=== PATIENT | female | born 1995 | race Caucasian/White ===

== ENCOUNTER 2017-01-23 08:40 | Day surgery (SDC) | payer BC ==
[2017-01-23] VITALS (15 sets, daily range): BP systolic 97–127; BP diastolic 56–86
[~2017-01-23] VITALS: Ht 160 cm; Wt 61.2 kg
[2017-01-23 09:23] LABS: MEAN CORPUSCULAR HEMOGLOBIN 32.7 PG (27.0-31.0); MEAN CORPUSCULAR HGB CONC 34.7 G/DL (32.0-36.0); MEAN CORPUSCULAR VOLUME 94 FL (80-99); MEAN PLATELET VOLUME 6.4 FL (6.5-10.1); PLATELET COUNT 413 K/UL (150-450); RED BLOOD COUNT 3.93 M/UL (4.20-5.40); RED CELL DISTRIBUTION WIDTH 10.7 % (11.6-14.8); WHITE BLOOD COUNT 15.4 K/UL (4.8-10.8)
--- NOTE | 2017-01-23 09:29 | Emergency Room Report ---
History of Present Illness General Chief Complaint: Generalized Weakness Source: Patient Present Illness HPI Patient states that she has been feeling poorly for the past 2 weeks. She states that she noted nausea, fatigue and crampy abdominal pain that started 2 weeks ago. She states that her symptoms have, and gone. She states that the abdominal cramping she thought was related to constipation she was having. She did take MiraLAX and has since had multiple bowel movements but states she continues to feel fatigued and nauseated. She states that she's also felt lightheaded especially over the past couple days. She states that this morning when she got up she got lightheaded and sweaty and had 2 episodes of syncope. She did start her period today. She has an IUD, however, she went to a clinic 4 days ago and there was concerned she could be . However, she did not take a home test. She states she took one an office that she has not received the results of the tests. She states she has some low abdominal pain. She states that the pain is usually worse towards the left side. She states it does wax and wane in severity. She also notes that she uses a water filtration cyst on that she notes had a fishy smell to the water. She states when she researched this further that there were issues with this water filtration cyst, and other people were becoming nauseated. She denies diarrhea. She denies fever or chills. She has no other complaints. Allergies: Coded Allergies: No Known Allergies (Unverified , 01/23/17) Patient History Past Medical History: see triage record, psych hx - anxiety Past Surgical History: none Social History: Denies: smoking, alcohol use, drug use Last Menstrual Period: Today Now: No - possibly Reviewed Nursing Documentation: PMH: Agreed, PSxH: Agreed Nursing Documentation-PMH Past Medical History: No History, Except For Hx Neurological Problems: Yes - anxiety Review of Systems All Other Systems: negative except mentioned in HPI Physical Exam Vital Signs Date Time Temp Pulse Resp B/P (MAP) Pulse Ox O2 Delivery O2 Flow Rate FiO2 01/23/17 08:32 97.0 69 15 125/92 98 Room Air Sp02 EP Interpretation: reviewed, normal General Appearance: no apparent distress, alert, GCS 15, non-toxic Head: normocephalic, atraumatic Eyes: bilateral eye normal inspection, bilateral eye PERRL ENT: hearing grossly normal, normal pharynx, no angioedema, normal voice Neck: full range of motion, supple/symm/no masses Respiratory: chest non-tender, lungs clear, normal breath sounds, speaking full sentences Cardiovascular #1: regular rate, rhythm, no edema Gastrointestinal: normal bowel sounds, soft, non-distended, no guarding, no rebound, tenderness - mild ttp diffusely lower abdomen Rectal: deferred Genitourinary: no CVA tenderness Musculoskeletal: back normal, gait/station normal, normal range of motion, non- tender Neurologic: alert, oriented x3, responsive, motor strength/tone normal, sensory intact, speech normal Psychiatric: judgement/insight normal, memory normal, mood/affect normal, no suicidal/homicidal ideation Skin: normal color, no rash, warm/dry, well hydrated Medical Decision Making Diagnostic Impression: Primary Impression: Ectopic ER Course This patient has an ectopic in the left adnexa. There is a live fetus with cardiac activity in the left abdomen. There is noted to be a small area of hemoperitoneum. IUD is in place. The patient is stable although she has been orthostatic with a borderline blood pressure. The patient is admitted under the care of Dr. Valles, BALL WINDER for further management. She was given IV fluids and monitor closely here in the emergency department. Laboratory Tests Test 01/23/17 09:12 White Blood Count 15.4 K/UL (4.8-10.8) H Red Blood Count 3.93 M/UL (4.20-5.40) L Hemoglobin 12.8 G/DL (12.0-16.0) Hematocrit 36.9 % (37.0-47.0) L Mean Corpuscular Volume 94 FL (80-99) Mean Corpuscular Hemoglobin 32.7 PG (27.0-31.0) H Mean Corpuscular Hemoglobin Concent 34.7 G/DL (32.0-36.0) Red Cell Distribution Width 10.7 % (11.6-14.8) L Platelet Count 413 K/UL (150-450) Mean Platelet Volume 6.4 FL (6.5-10.1) L Neutrophils (%) (Auto) % (45.0-75.0) Lymphocytes (%) (Auto) % (20.0-45.0) Monocytes (%) (Auto) % (1.0-10.0) Eosinophils (%) (Auto) % (0.0-3.0) Basophils (%) (Auto) % (0.0-2.0) Differential Total Cells Counted 100 Neutrophils % (Manual) 89 % (45-75) H Lymphocytes % (Manual) 6 % (20-45) L Monocytes % (Manual) 4 % (1-10) Eosinophils % (Manual) 0 % (0-3) Basophils % (Manual) 0 % (0-2) Band Neutrophils 1 % (0-8) Platelet Estimate Increased H Platelet Morphology Normal Red Blood Cell Morphology Normal Sodium Level 138 MMOL/L (136-145) Potassium Level 3.4 MMOL/L (3.5-5.1) L Chloride Level 103 MMOL/L (98-107) Carbon Dioxide Level 24 MMOL/L (21-32) Anion Gap 11 mmol/L (5-15) Blood Urea Nitrogen 9 mg/dL (7-18) Creatinine 0.8 MG/DL (0.55-1.30) Estimate Glomerular Filtration Rate > 60 mL/min (>60) Glucose Level 143 MG/DL (74-106) H Calcium Level 9.0 MG/DL (8.5-10.1) Total Bilirubin 0.4 MG/DL (0.2-1.0) Aspartate Amino Transferase (AST) 15 U/L (15-37) Alanine Aminotransferase (ALT) 21 U/L (12-78) Alkaline Phosphatase 47 U/L (46-116) Total Protein 7.2 G/DL (6.4-8.2) Albumin 3.8 G/DL (3.4-5.0) Globulin 3.4 g/dL Albumin/Globulin Ratio 1.1 (1.0-2.7) Human Chorionic Gonadotropin, Qual Positive Human Chorionic Gonadotropin, Quant 64012 mIU/mL (1-6) H EKG Diagnostic Results Rate: normal Rhythm: NSR ST Segments: no acute changes Rhythm Strip Diag. Results EP Interpretation: yes Rate: 70's Rhythm: NSR, no PVC's, no ectopy CT/MRI/US Diagnostic Results CT/MRI/US Diagnostic Results : Imaging Test Ordered: US pelvis Impression Impression: 8 week one day left adnexal living ectopic . Evidence of associated mild hemoperitoneum. IUD noted. Last Vital Signs Date Time Temp Pulse Resp B/P (MAP) Pulse Ox O2 Delivery O2 Flow Rate FiO2 01/23/17 09:18 77 17 97/63 100 01/23/17 08:32 97.0 Room Air Disposition: ADMITTED INPATIENT Condition: Serious Referrals: NOT CHOSEN IPA/,REFERRING (PCP) NETO MORENO D.O. Jan 23, 2017 09:29
[2017-01-23 09:37] LABS: ALANINE AMINOTRANSFERASE 21 U/L (12-78); ALBUMIN/GLOBULIN RATIO 1.1 (1.0-2.7); ANION GAP 11 mmol/L (5-15); ASPARTATE AMINO TRANSFERASE 15 U/L (15-37); CARBON DIOXIDE 24 MMOL/L (21-32); CHLORIDE 103 MMOL/L (98-107); CREATININE 0.8 MG/DL (0.55-1.30); GLOMERULAR FILTRATION RATE > 60 mL/min (>60); POTASSIUM 3.4 MMOL/L (3.5-5.1); SODIUM 138 MMOL/L (136-145); TOTAL PROTEIN 7.2 G/DL (6.4-8.2)
[2017-01-23 10:09] LABS: BAND NEUTROPHILS % (MANUAL) 1 % (0-8); BASOPHILS % (MANUAL) 0 % (0-2); EOSINOPHILS % (MANUAL) 0 % (0-3); LYMPHOCYTES % (MANUAL) 6 % (20-45); NEUTROPHILS % (MANUAL) 89 % (45-75); PLATELET ESTIMATE INCREASED; TOTAL CELLS COUNTED 100
[2017-01-23 10:10] LABS: PLATELET MORPHOLOGY NORMAL
--- NOTE | 2017-01-23 11:05 | Diagnostic Imaging Report ---
Indication:Pelvic pain. IUD Technique: Grayscale and duplex Doppler imaging of the pelvis performed utilizing a transabdominal scan and endovaginal scan. Comparison: None Findings: Single living extrauterine demonstrated in the left adnexa with identification of a gestational sac, yolk sac and pole with cardiac motion. [place]-rump length estimates gestational age of about 8 weeks one day. There is a small amount of free fluid within the cul-de-sac. The free fluid likely contains some echoes indicative of a small amount of hemoperitoneum. There is no intrauterine . Intrauterine device is noted well situated in the endometrial canal. The left ovary is separately identified and is unremarkable in appearance. The right ovary is unremarkable. Impression: 8 week one day left adnexal living ectopic . Evidence of associated mild hemoperitoneum. IUD noted. Critical value communication. Findings were discussed via telephone with Dr. Johnson via telephone at 10:50 AM, 01/23/17 .
[2017-01-23] MEDS ORDERED: PRISTIQ ER50 MG PO (11:23)
[2017-01-23] MEDS ORDERED: ceFAZolin sod 1 GM in D5W 55 ML IV ONE ×4 (13:45)
[2017-01-23] MEDS ORDERED: Ropivacaine 5mg/ml Vial 30ml INJ ONE (14:03)
[2017-01-23] MEDS ORDERED: Bupivacaine 0.5% Inj 30 ml vial INJ ONE (14:03)
--- NOTE | 2017-01-23 14:03 | History & Physical ---
History and Physical History & Physicial GYNECOLOGY HISTORY AND PHYSICAL CC: Called by ER due to concern for ectopic HPI: Patient is a 21yo who presented to the ED with 2w hx of malaise, nausea, fatigue, and cramping abdominal pain. She also reports some vaginal bleeding. She thought her sx were GI-related, but after self-medicating with several GI meds her symptoms persisted. She presented to the ED this AM and was found to have an ~8w fetus in her left adnexa with cardiac movement. I was called for management. PMH: Denies hx of HTN, DM, asthma, +hx of anxiety PSH: Denies OB: G1 - current [employer]: No hx of STI, IUD in place Meds: None Allergies: NKDA SocHx: Denies T/E/D, partner at bedside for support Vital Signs Date Time Temp Pulse Resp B/P (MAP) Pulse Ox O2 Delivery O2 Flow Rate FiO2 01/23/17 08:32 97.0 69 15 125/92 98 Room Air PHYSICAL EXAM: General Appearance: NAD, but appers uncomfortable with mild pallor Head: normocephalic, atraumatic Eyes: bilateral eye normal inspection, bilateral eye PERRL ENT: MMM, OP clear Neck: full range of motion, supple/symm/no masses Respiratory: normal breath sounds, speaking full sentences, no increased work of breathing or pain on inspiration Cardiovascular: regular rate, rhythm, no edema Gastrointestinal: normal bowel sounds, soft, non-distended, +mild voluntary guarding, +rebound and tenderness in b/l LQ Genitourinary: +VB, speculum exam deferred Musculoskeletal: back normal, gait/station normal, FROM Neurologic: alert, oriented x3, responsive, motor strength/tone normal, sensory intact, speech normal Psychiatric: judgement/insight normal, memory normal, mood/affect normal, no suicidal/homicidal ideation Skin: normal color, no rash, warm/dry, well hydrated, pallor as above Laboratory Tests Test 01/23/17 09:12 White Blood Count 15.4 K/UL (4.8-10.8) H Red Blood Count 3.93 M/UL (4.20-5.40) L Hemoglobin 12.8 G/DL (12.0-16.0) Hematocrit 36.9 % (37.0-47.0) L Mean Corpuscular Volume 94 FL (80-99) Mean Corpuscular Hemoglobin 32.7 PG (27.0-31.0) H Mean Corpuscular Hemoglobin Concent 34.7 G/DL (32.0-36.0) Red Cell Distribution Width 10.7 % (11.6-14.8) L Platelet Count 413 K/UL (150-450) Mean Platelet Volume 6.4 FL (6.5-10.1) L Neutrophils (%) (Auto) % (45.0-75.0) Lymphocytes (%) (Auto) % (20.0-45.0) Monocytes (%) (Auto) % (1.0-10.0) Eosinophils (%) (Auto) % (0.0-3.0) Basophils (%) (Auto) % (0.0-2.0) Differential Total Cells Counted 100 Neutrophils % (Manual) 89 % (45-75) H Lymphocytes % (Manual) 6 % (20-45) L Monocytes % (Manual) 4 % (1-10) Eosinophils % (Manual) 0 % (0-3) Basophils % (Manual) 0 % (0-2) Band Neutrophils 1 % (0-8) Platelet Estimate Increased H Platelet Morphology Normal Red Blood Cell Morphology Normal Sodium Level 138 MMOL/L (136-145) Potassium Level 3.4 MMOL/L (3.5-5.1) L Chloride Level 103 MMOL/L (98-107) Carbon Dioxide Level 24 MMOL/L (21-32) Anion Gap 11 mmol/L (5-15) Blood Urea Nitrogen 9 mg/dL (7-18) Creatinine 0.8 MG/DL (0.55-1.30) Estimate Glomerular Filtration Rate > 60 mL/min (>60) Glucose Level 143 MG/DL (74-106) H Calcium Level 9.0 MG/DL (8.5-10.1) Total Bilirubin 0.4 MG/DL (0.2-1.0) Aspartate Amino Transferase (AST) 15 U/L (15-37) Alanine Aminotransferase (ALT) 21 U/L (12-78) Alkaline Phosphatase 47 U/L (46-116) Total Protein 7.2 G/DL (6.4-8.2) Albumin 3.8 G/DL (3.4-5.0) Globulin 3.4 g/dL Albumin/Globulin Ratio 1.1 (1.0-2.7) Human Chorionic Gonadotropin, Qual Positive Human Chorionic Gonadotropin, Quant 61712 mIU/mL (1-6) H EKG Diagnostic Results Rate: normal Rhythm: NSR ST Segments: no acute changes Rhythm Strip Diag. Results EP Interpretation: yes Rate: 70's Rhythm: NSR, no PVC's, no ectopy CT/MRI/US Diagnostic Results Imaging Test Ordered: US pelvis Impression: 8 week one day left adnexal living ectopic . Evidence of associated mild hemoperitoneum. IUD noted. Last Vital Signs Date Time Temp Pulse Resp B/P (MAP) Pulse Ox O2 Delivery O2 Flow Rate FiO2 01/23/17 09:18 77 17 97/63 100 01/23/17 08:32 97.0 Room Air ASSESSMENT/PLAN: RUPTURED ECTOPIC . ADMIT TO OR FOR LSC L SALPINGOSTOMY VS SALPINGECTOMY, POSSIBLE LSO. Anticipate patient will be able to go home post-op from PACU. Follow up in 1 week in the office with me. Call [phone] with any questions or concerns. Teresa Katz M.D. Jan 23, 2017 14:03
[2017-01-23 14:04] LABS: MEAN CORPUSCULAR HEMOGLOBIN 33.2 PG (27.0-31.0); MEAN CORPUSCULAR HGB CONC 35.7 G/DL (32.0-36.0); MEAN CORPUSCULAR VOLUME 93 FL (80-99); MEAN PLATELET VOLUME 6.2 FL (6.5-10.1); PLATELET COUNT 342 K/UL (150-450); RED BLOOD COUNT 3.12 M/UL (4.20-5.40); RED CELL DISTRIBUTION WIDTH 10.7 % (11.6-14.8); WHITE BLOOD COUNT 18.5 K/UL (4.8-10.8)
--- NOTE | 2017-01-23 14:04 | Pre-Procedure Note/Attestation ---
Pre-Procedure Note/Attestation Complete Prior to Procedure Planned Procedure: left Procedure Narrative: Laparoscopic left salpingostomy vs. salpingectomy, possible left salpingo- oophorectomy Indications for Procedure Pre-Operative Diagnosis: Ruptured ectopic Attestation I attest that I discussed the nature of the procedure; its benefits; risks and complications; and alternatives (and the risks and benefits of such alternatives ), prior to the procedure, with the patient (or the patient's legal financial foundations representative). I attest that, if there was a reasonable possibility of needing a blood transfusion, the patient (or the patient's legal financial foundations representative) was given the [facility] standardized written summary, pursuant to the [place] Blood Safety Act ([place] Health and Safety Code # 1645, as amended). I attest that I re-evaluated the patient just prior to the surgery and that there has been no change in the patient's H&P, except as documented below: NONE Teresa Katz M.D. Jan 23, 2017 14:04
--- NOTE | 2017-01-23 14:47 | Anethesia Preoperative Eval ---
Anesthesia Pre-op PMH/ROS General Date of Evaluation: Jan 23, 2017 Time of Evaluation: 15:01 Anesthesiologist: Roney ASA Score: ASA 1 - Emergency Mallampati Score Class I : Soft palate, uvula, fauces, pillars visible Class II: Soft palate, uvula, fauces visible Class III: Soft palate, base of uvula visible Class IV: Only hard plate visible Mallampati Classification: Class I Surgeon: Sterling Diagnosis: Ectopic Surgical Procedure: Evacuate Ectopic Anesthesia History: none Family History: no anesthesia problems Allergies: Coded Allergies: No Known Allergies (Unverified , 01/23/17) Medications: see eMAR Past Medical History Neurologic/Psychiatric: Reports: depression/anxiety Hematology/Immune: Reports: anemia - Mild Anesthesia Pre-op Phys. Exam Physician Exam Last Vital Signs Date Time Temp Pulse Resp B/P (MAP) Pulse Ox O2 Delivery O2 Flow Rate FiO2 01/23/17 14:12 78 18 108/55 100 Room Air 01/23/17 12:38 97.0 Constitutional: NAD Neurologic: CN 2-12 intact Cardiovascular: RRR Respiratory: CTA Gastrointestinal: S/NT/ND Airway Exam Mallampati Score: Class I MO: full ROM: full Teeth: intact Anesthesia Pre-op A/P Labs Hematology Test 01/23/17 09:12 01/23/17 13:57 White Blood Count 15.4 K/UL (4.8-10.8) H 18.5 K/UL (4.8-10.8) H Red Blood Count 3.93 M/UL (4.20-5.40) L 3.12 M/UL (4.20-5.40) L Hemoglobin 12.8 G/DL (12.0-16.0) 10.4 G/DL (12.0-16.0) L Hematocrit 36.9 % (37.0-47.0) L 29.0 % (37.0-47.0) L Mean Corpuscular Volume 94 FL (80-99) 93 FL (80-99) Mean Corpuscular Hemoglobin 32.7 PG (27.0-31.0) H 33.2 PG (27.0-31.0) H Mean Corpuscular Hemoglobin Concent 34.7 G/DL (32.0-36.0) 35.7 G/DL (32.0-36.0) Red Cell Distribution Width 10.7 % (11.6-14.8) L 10.7 % (11.6-14.8) L Platelet Count 413 K/UL (150-450) 342 K/UL (150-450) Mean Platelet Volume 6.4 FL (6.5-10.1) L 6.2 FL (6.5-10.1) L Neutrophils (%) (Auto) % (45.0-75.0) % (45.0-75.0) Lymphocytes (%) (Auto) % (20.0-45.0) % (20.0-45.0) Monocytes (%) (Auto) % (1.0-10.0) % (1.0-10.0) Eosinophils (%) (Auto) % (0.0-3.0) % (0.0-3.0) Basophils (%) (Auto) % (0.0-2.0) % (0.0-2.0) Differential Total Cells Counted 100 Neutrophils % (Manual) 89 % (45-75) H Pending Lymphocytes % (Manual) 6 % (20-45) L Pending Monocytes % (Manual) 4 % (1-10) Eosinophils % (Manual) 0 % (0-3) Basophils % (Manual) 0 % (0-2) Band Neutrophils 1 % (0-8) Platelet Estimate Increased H Pending Platelet Morphology Normal Pending Red Blood Cell Morphology Normal Chemistry Test 01/23/17 09:12 Sodium Level 138 MMOL/L (136-145) Potassium Level 3.4 MMOL/L (3.5-5.1) L Chloride Level 103 MMOL/L (98-107) Carbon Dioxide Level 24 MMOL/L (21-32) Anion Gap 11 mmol/L (5-15) Blood Urea Nitrogen 9 mg/dL (7-18) Creatinine 0.8 MG/DL (0.55-1.30) Estimat Glomerular Filtration Rate > 60 mL/min (>60) Glucose Level 143 MG/DL (74-106) H Calcium Level 9.0 MG/DL (8.5-10.1) Total Bilirubin 0.4 MG/DL (0.2-1.0) Aspartate Amino Transf (AST/SGOT) 15 U/L (15-37) Alanine Aminotransferase (ALT/SGPT) 21 U/L (12-78) Alkaline Phosphatase 47 U/L (46-116) Total Protein 7.2 G/DL (6.4-8.2) Albumin 3.8 G/DL (3.4-5.0) Globulin 3.4 g/dL Albumin/Globulin Ratio 1.1 (1.0-2.7) Human Chorionic Gonadotropin, Qual Positive Human Chorionic Gonadotropin, Quant 28615 mIU/mL (1-6) H Serum Test Test 01/23/17 09:12 Human Chorionic Gonadotropin, Qual Positive Risk Assessment & Plan Assessment: ASA 1E Plan: GA, BIS, GlideScope Pre-Antibiotics Dru Gram Cefoxitin IV Given Within 1 Hr of Incision: Yes Time Given: 15:16 Ryan Sim MD Jan 23, 2017 14:47
[2017-01-23] MEDS ORDERED: cefOXitin 1gm Inj ONE (14:52)
[2017-01-23 14:53] LABS: BAND NEUTROPHILS % (MANUAL) 1 % (0-8); BASOPHILS % (MANUAL) 0 % (0-2); EOSINOPHILS % (MANUAL) 0 % (0-3); LYMPHOCYTES % (MANUAL) 4 % (20-45); NEUTROPHILS % (MANUAL) 94 % (45-75); PLATELET ESTIMATE ADEQUATE; PLATELET MORPHOLOGY NORMAL; TOTAL CELLS COUNTED 100
[2017-01-23] MEDS ORDERED: NS Irrig 1000ml ONE (15:00)
[2017-01-23] MEDS ORDERED: fentaNYL 100 mcg/2 mL IV ONE (15:00)
[2017-01-23] MEDS ORDERED: Zemuron 50mg/5ml Inj IV ONE (15:00)
[2017-01-23] MEDS ORDERED: Midazolam 2mg/2ml Inj ONE (15:00)
[2017-01-23] MEDS ORDERED: Lidocaine 1% MPF 10mg/ml 5ml ONE (15:00)
[2017-01-23] MEDS ORDERED: Ketorolac 30mg Inj ONE (15:00)
[2017-01-23] MEDS ORDERED: Metoprolol 5mg/5ml Inj ONE (15:00)
[2017-01-23] MEDS ORDERED: Neostigmine 1mg/ml 10ml Inj ONE (15:00)
[2017-01-23] MEDS ORDERED: LR 1000ml ONE (15:00)
[2017-01-23] MEDS ORDERED: Propofol 200mg/20ml IV ONE (15:00)
[2017-01-23] MEDS ORDERED: Glycopyrrolate 0.2mg/ml 1ml Vial ONE (15:00)
[2017-01-23] MEDS ORDERED: Sterile Water Irrig 1000ml IRRIG ONE (15:00)
[2017-01-23] MEDS ORDERED: Dexamethasone 4mg/ml vial ONE (15:00)
[2017-01-23] MEDS ORDERED: NS Irrig 1000ml IRRIG ONE (15:37)
[2017-01-23] MEDS ORDERED: LR 1000ml 1,000 ML IVLG SCH (15:54)
--- NOTE | 2017-01-23 15:56 | Immediate Post-Op Evaluation ---
Immediate Post-Op Evalulation Immediate Post-Op Evalulation Procedure: Laparoscopic Evacuation Ectopic Date of Evaluation: Jan 23, 2017 Time of Evaluation: 17:49 IV Fluids: 1000 LR Blood Products: 0 Estimated Blood Loss: 1000 Urinary Output: 200 Blood Pressure Systolic: 127 Blood Pressure Diastolic: 86 Pulse Rate: 85 Respiratory Rate: 16 O2 Sat by Pulse Oximetry: 100 Temperature (Fahrenheit): 98.3 Pain Score (1-10): 2 Nausea: No Vomiting: No Complications 0 Patient Status: awake, reacts, patent, extubated, none Hydration Status: adequate Dru Gram Cefoxitin IV Given Within 1 Hr of Incision: Yes Time Given: 15:16 Ryan Sim MD Jan 23, 2017 15:56
[2017-01-23] MEDS ORDERED: Ketorolac 30mg Inj IV PRN (16:00)
[2017-01-23] MEDS ORDERED: LORazepam Inj 2mg/ml 1ml IV PRN (16:00)
[2017-01-23] MEDS ORDERED: Ketorolac 60mg Inj IV PRN (16:00)
[2017-01-23] MEDS ORDERED: Hydromorphone 0.5mg/0.5ml inj IVP PRN (16:00)
[2017-01-23] MEDS ORDERED: Norco 7.5mg/325mg tab ORAL PRN (16:00)
[2017-01-23] MEDS ORDERED: fentaNYL 100 mcg/2 mL IV PRN (16:00)
[2017-01-23] MEDS ORDERED: oxyCODONE HCL/Acetaminophen 5/325mg ORAL PRN (16:00)
[2017-01-23] MEDS ORDERED: DiphenhydrAMINE 50mg/ml Inj IVP PRN (16:00)
[2017-01-23] MEDS ORDERED: Metoclopramide 10mg/2ml Inj IVP PRN (16:00)
[2017-01-23] MEDS ORDERED: Norco 5mg/325mg tab ORAL PRN (16:00)
[2017-01-23] MEDS ORDERED: Midazolam 2mg/2ml Inj IVP PRN (16:00)
[2017-01-23] MEDS ORDERED: Atropine Inj 1mg/10ml Syr IV PRN (16:00)
[2017-01-23] MEDS ORDERED: Acetaminophen (Non formulary) 100 ML IV ONE (16:15)
--- NOTE | 2017-01-23 17:54 | Brief Operative Note ---
Immediate Post Operative Note Operative Note Chief Complaint: Ectopic ruptured Pre-op Diagnosis: Ruptured ectopic Procedure: Laparoscopic left salpingectomy Post-op Diagnosis: Ruptured ectopic Post-op Diagnosis: same as pre-op Surgeon: Teresa Katz MD Senior Software Quality Engineer: Rodriguez Valles MD ([place]) Anesthesiologist: Ryan Sim MD Anesthesia: general Specimen: yes Complications: none Condition: stable Fluids: LR 1000ml Estimated Blood Loss: volume - 1000ml Drains: none Packing: None Implant(s) used?: No Teresa Katz M.D. Jan 23, 2017 17:54
--- NOTE | 2017-01-23 17:55 | Operative Note - PDOC ---
Operative Note Operative Note Date of Operation/Procedure: Jan 23, 2017 Chief Complaint: Ectopic ruptured Pre-op Diagnosis: Ruptured ectopic Procedure: Laparoscopic left salpingectomy Post-op Diagnosis: Ruptured ectopic Post-op Diagnosis: same as pre-op Surgeon: Teresa Katz MD Cashier Ticket Selling: Rodriguez Valles MD ([place]) Anesthesiologist: Ryan Sim MD Anesthesia: general Specimen: yes Complications: none Condition: stable Fluids: LR 1000ml Estimated Blood Loss: volume - 1000ml Drains: none Packing: None Implant(s) used?: No Indications for Procedure Patient presented to the ED with positive Beta-hCG and ~8w ectopic noted in the left fallopian tube with signs of rupture. The decision was made to proceed to the operating room emergently. Description of Procedure The risks, benefits, and alternatives of the procedure were discussed with the patient including risk of infection, bleeding, damage to surrounding organs, as well as possible salpingectomy or salpingo-oophorectomy. Informed consent was obtained. The patient was taken to the operating room where general endotracheal anesthesia was obtained without difficulty after placement of SCD stockings. The patient was positioned in dorsal lithotomy in Maurilio stirrups. She was then prepped and draped in the usual sterile fashion. Mason catheter was placed. Time out was performed to verify patient and procedure. Bimanual exam revealed an enlarged uterus. IUD strings were palpated. A speculum was placed and the anterior lip of the cervix was grasped with a single-toothed tenaculum. An acorn uterine manipulator was placed, stabilized against the tenaculum, and attention was turned to the abdomen. Local anesthetic was injected intraumbilically and an incision was made with the scalpel. Veress needle was inserted into the abdomen and pneumoperitoneum was established. A 12-mm trochar was then inserted intraumbilically and the operative laparoscope was introduced. A large amount of hemoperitoneum was noted , with bright red blood and clot. Accessory ports were then placed as follows: a 5mm port in the left lower quadrant and a 5mm port suprapubic. The blood and clot were suctioned from the abdomen to allow clear visualization of the affected tube. The was noted in the cul-de-sac and evacuated using suction. The left fallopian tube was dilated and a large rupture site was noted in the ampullary portion of the tube. Given the amount of damage noted to the affected tube, as well as continued bleeding from the tube, the decision was made to proceed with salpingectomy. The tube was grasped at the fimbriated portion and using bipolar and monopolar energy, as well as cold cut, the tube was amputated. Excellent hemostasis was noted. The tube was then removed through the umbilical port site. Copious irrigation of the pelvis and upper abdomen was performed, and excess blood and clot was evacuated. The surgical site was once again inspected to confirm hemostasis. The ports were removed under direct visualization. The umbilical fascia was closed with 0-Vicryl suture and the skin was closed with 4-0 Monocryl suture and steri-strips. Incisions were bandaged with gauze and tegaderm. All sponge, instrument, and needle counts were correct x 2. The patient was awakened from anesthesia, extubated, and transferred to the recovery room in stable condition. Dr. Valles, loius, was present for the entire procedure. Teresa Katz M.D. Jan 23, 2017 17:55
--- NOTE | 2017-01-24 15:44 | Cardiology Report ---
APPROVED REPORT EKG Measurement Heart [id number] Normal sinus rhythm Rightward axis Borderline ECG
== END 2017-01-23 20:55 | disposition home or self-care (01) ==
LOC: EDBD 08:40 → EMR 08:53 → SUR 11:05 → 2E 11:05 → UNDOADMIN 11:05 → EDBEDREQ 11:56 → SUR 20:55
DX: O00.102 Left tubal pregnancy without intrauterine pregnancy (principal); Z3A.08 8 weeks gestation of pregnancy; F32.9 Major depressive disorder, single episode, unspecified; F41.9 Anxiety disorder, unspecified; Z97.5 Presence of (intrauterine) contraceptive device
CPT/HCPCS: 36415; 59151; 76801; 76830; 80053; 84702; 84703; 85007; 85025; 86850; 86900; 86901; 86920; 93005; 99285; J0694; J1100; J1885; J2250; J2405; J2704; J2710; J2795; J3010; J7120; 94003; 94150